=== PATIENT | female | born 2000 | race Two or more races ===

== ENCOUNTER 2020-06-03 | Outpatient (REF) | payer MEDICAID, SELFPAY | END 2020-06-03 00:01 | disposition home or self-care (01) | LOC: HO.LNP | PROVIDERS: Visit Provider Hospitalist | DX: Z13.89 Encounter for screening for other disorder (principal) | CPT/HCPCS: 87086 ==

== ENCOUNTER 2020-06-03 14:46 | Outpatient (REF) | payer MEDICAID, SELFPAY | END 2020-06-03 14:47 | disposition home or self-care (01) | LOC: HO.LAB 14:46 | PROVIDERS: Visit Provider Hospitalist | DX: N30.01 Acute cystitis with hematuria (principal) | CPT/HCPCS: 87086; 87088; 87147; 87186 ==

== ENCOUNTER 2020-12-06 09:42 | Outpatient (REF) | payer MEDICAID, SELFPAY ==
[2020-12-06 11:39] LABS: HBsAGNum1 0.24 S/CO (0.00-0.99); HIV AB/AG Nonreactive (Nonreactive); HIV Num 1 0.07 S/CO (0.00-0.99); Hepatitis B Surface Antigen Negative (Negative); ~HepC Num1 0.07 S/CO (0.00-0.79); ~Hepatitis C Antibody Nonreactive (Nonreactive)
[2020-12-06 11:51] LABS: Syphilis Screen Nonreactive (Nonreactive)
[2020-12-06 12:04] LABS: HBS Num1 5.79 mIU/mL (0-7.99); HBc Num1 0.15 S/CO (0.00-0.79); Hepatitis B Core Antibody Nonreactive (Nonreactive); ~Hepatitis B Surface Antibody NONREACTIVE (Nonreactive)
== END 2020-12-06 09:43 | disposition home or self-care (01) ==
LOC: HO.WFDLDS 09:42
PROVIDERS: Visit Provider Family Medicine
DX: Z01.84 Encounter for antibody response examination (principal); Z11.4 Encounter for screening for human immunodeficiency virus [HIV]
CPT/HCPCS: 36415; 86704; 86706; 86780; 86803; 87340; 87389

== ENCOUNTER 2020-12-08 13:31 | Outpatient (REF) | payer MEDICAID, SELFPAY ==
[2020-12-08 16:02] LABS: CT PCR NOT DETECTED (Not Detect.); NG PCR NOT DETECTED (Not Detect.)
== END 2020-12-08 13:32 | disposition home or self-care (01) ==
LOC: HO.LNP 13:31
PROVIDERS: Visit Provider Family Medicine
DX: Z11.3 Encounter for screening for infections with a predominantly sexual mode of transmission (principal)
CPT/HCPCS: 87491; 87591

== ENCOUNTER 2021-02-25 19:18 | Emergency (ER) | payer MEDICAID, SELFPAY ==
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
[2021-02-25 20:36] VITALS: BP 118/54; PULSE 77; RESP 16; TEMP 37.2; O2SAT 99; BMI 26.4
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
[2021-02-25] MEDS: Ibuprofen 600 MG TABLET PO (23:00)
== END 2021-02-26 00:18 | disposition home or self-care (01) ==
PROVIDERS: Emergency Provider Emergency Medicine; PCP Hospitalist
DX: S39.012A Strain of muscle, fascia and tendon of lower back, initial encounter (principal); S13.4XXA Sprain of ligaments of cervical spine, initial encounter; V47.5XXA Car driver injured in collision with fixed or stationary object in traffic accident, initial encounter; M25.532 Pain in left wrist; W22.11XA Striking against or struck by driver side automobile airbag, initial encounter; Y93.89 Activity, other specified; Y92.411 Interstate highway as the place of occurrence of the external cause; Y99.9 Unspecified external cause status
CPT/HCPCS: 70450; 72070; 72100; 72125; 73110; 73130; 73620; 99284

== ENCOUNTER 2021-03-01 10:26 | Outpatient (REF) | payer OTHER, MEDICAID, SELFPAY ==
--- NOTE | ~2021-03-01 | XR_ITS ---
EXAMINATION: LEFT HAND/WRIST. CLINICAL INFORMATION: Pain COMPARISON: None TECHNIQUE: 4 views. FINDINGS: There is no visible acute fracture, dislocation or subluxation seen. The soft tissues are normal. There is no scaphoid bone fracture. XR/XR hand wrist LT IMPRESSION: Unremarkable left hand/wrist exam.
== END 2021-03-01 10:27 | disposition home or self-care (01) ==
LOC: HO.XRAY 10:26
PROVIDERS: PCP Hospitalist; Visit Provider Family Medicine
DX: M25.532 Pain in left wrist (principal); M79.642 Pain in left hand
CPT/HCPCS: 73110; 73130

== ENCOUNTER 2021-12-22 15:30 | Outpatient (REF) | payer MEDICAID, SELFPAY | END 2021-12-22 15:31 | disposition home or self-care (01) | LOC: HO.LNP 15:30 | PROVIDERS: Visit Provider Hospitalist | DX: N39.0 Urinary tract infection, site not specified (principal); R35.0 Frequency of micturition | CPT/HCPCS: 87086; 87088; 87186 ==

== ENCOUNTER 2022-09-28 14:15 | Outpatient (REF) | payer MEDICAID, SELFPAY ==
[2022-09-29 12:51] LABS: Influenza A PCR NEGATIVE (Negative); Influenza B PCR NEGATIVE (Negative); Resp Syncy Virus RNA Qual PCR NEGATIVE (Negative); SARS COV2 PCR INHOUSE NEGATIVE (Negative)
== END 2022-09-28 14:16 | disposition home or self-care (01) ==
LOC: HO.LAB 14:15
PROVIDERS: Visit Provider Hospitalist
DX: Z20.822 Contact with and (suspected) exposure to COVID-19 (principal); B34.9 Viral infection, unspecified
CPT/HCPCS: 0241U

== ENCOUNTER 2023-05-15 13:46 | Outpatient (AMB) | payer MEDICAID, SELFPAY ==
[2023-05-15 13:53] VITALS: BP 116/64; PULSE 88; RESP 13; TEMP 36.3; O2SAT 99; BMI 24.6
--- NOTE | 2023-05-15 13:53 | MHC.PC.OV ---
Vital Signs 05/15/23 13:53 Height 5 ft 1 in Weight 130 lb 6 oz BMI 24.6 BP 116/64 Blood Pressure Location Rt brachial Position Sitting Respiration 13 Pulse 88 Pulse Source Pulse Oximeter Temp 97.3 F Temp Source Temporal Artery Scan Pulse Oximetry (%) 99 Oxygen Delivery Method Room Air Intake Visit Reasons: rash Intake Note: Patient states that the rash is on her stomach and on her breasts that doesn't itch. She states that sometimes there is an urge to itch but she doesn't itch. 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 Accompanied by: Self / Same As Patient Allergies No Known Allergies [No Known Allergies*] Allergy (Verified 05/15/23 14:11) Medication List - Last Reconciled 05/15/23 by Gladys Madrigal CNP cetirizine 10 mg PO DAILY PRN 30 days clindamycin phosphate 1% (Clindagel) 1 appl topical DAILY 28 days clotrimazole 1% (Lotrimin AF (clotrimazole)) 1 appl topical BID 4 weeks cyclobenzaprine 10 mg PO TID PRN ibuprofen 800 mg PO Q8H PRN 10 days olopatadine 0.2% (Pataday Once Daily Relief) 1 drp ophthalmic (eye) BEDTIME 1 month ondansetron HCl 4 mg PO Q6H PRN 1 month Tobacco use date assessed: 09/06/22 Dental Screening Dental Screen Date: 05/15/23 Did you have a dental visit in the last 12 months?: Yes Did you have a dental problem in the last 6 months where you did not have access to dental care?: No Was dental information given to patient?: Patient has dentist HPI HPI Comments History of Present Illness Details 23-year-old female present with complaints of a rash to anterior to her breasts and abdomen. She notes that the rash has been present for about a week. She notes that the rash is only itchy at times. She denies severe itching. She was evaluated at an urgent care 5 days ago and was prescribed hydrocortisone cream for contact dermatitis. She states that the rash medication is ineffective and the rash as been spreading. She denies using new body products or laundry detergent. She denies introducing new food in her diet. She denies excessive sweating. She denies sick contact. [facility] Medical History No pertinent past medical history Surgical History No pertinent past surgical history Family History Father No problems noted. Mother No problems noted. Social History Household Members: Family Housing: House Patient Tobacco Use Status: Never used Tobacco e-Cigarette/Vaping Use: Never Used service: No Current occupational status: employed Current occupation: [employer] Cognitive needs: No Hearing needs: No Vision needs: No Questionnaire Thrive Questionnaire Date Thrive assessed: 09/06/22 PHILIPPE-7 AMB Questionnaire PHILIPPE-7 Date PHILIPPE - 7 assessed: 09/06/22 Source: Developed by Drs. Hugo Kendrick, Kristin Zaldivar, Brendon Marie and colleagues, with an educational adam from [employer]. Review of Systems Const Details: Const Denies chills, Denies fatigue, Denies fever(s), Denies headache(s) and Denies weakness ENT Denies dizziness and Denies headache(s) Card Denies chest pain, Denies lightheadedness, Denies dyspnea and Denies other (Palpitations) Resp Denies cough, Denies dyspnea, Denies wheezing and Denies other ( shortness of breath) GI Denies abdominal pain, Denies melena, Denies hematochezia, Denies change in bowel habits, Denies dyspepsia and Denies nausea Denies hematuria and Denies dysuria Musc Denies abnormal gait, Denies myalgias, Denies arthralgias, Denies numbness and Denies tingling Skin/Breast Reports as per HPI Neuro Denies abnormal gait, Denies dizziness, Denies headache(s), Denies memory loss, Denies numbness, Denies Sensory deficit (Neuro), Denies tingling and Denies weakness Psych Denies anxiety, Denies depression, Denies memory loss Endo Denies cold intolerance, Denies fatigue, Denies heat intolerance, Denies polydipsia and Denies polyuria Aller/Immun Denies wheezing Physical exam (Primary Care) Vital Signs: Last Vital Signs Temp 97.3 F 05/15/23 13:53 Pulse 88 05/15/23 13:53 Resp 13 05/15/23 13:53 BP 116/64 05/15/23 13:53 Pulse Ox 99 05/15/23 13:53 Oxygen Delivery Method Room Air 05/15/23 13:53 BMI result Body Mass Index 24.6 Tobacco/Smoking Status: Tobacco use Status Tobacco use date assessed 09/06/22 05/15/23 14:03 Patient Tobacco Use Status Never used Tobacco 05/15/23 14:03 e-Cigarette/Vaping Use Never Used 05/15/23 14:10 Thrive Assessment: Date of Thrive Assessment Date Thrive assessed 09/06/22 05/15/23 14:03 Const Other: General: no acute distress and well developed Nutritional Appearance: well nourished Orientation/consciousness: patient oriented x3 HENMT Head: Yes normocephalic and Yes atraumatic Eyes General: appearance normal, both eyes and all related structures Pupils: Equal, round and reactive pupils present EOM: EOMs intact bilaterally Resp Effort & Inspection: normal respiratory effort Auscultation: clear to auscultation bilaterally Cardio Rate: regular rate Rhythm: regular rhythm Heart sounds: S1 normal heart sound present, S2 normal heart sound present, no gallops, no murmurs and no rubs GI Palpation (GI): No Abdominal aortic bruit present, Soft to palpation, nontender, No hepatosplenomegaly present and No Rebound tenderness present Auscultation: normal bowel sounds General: Yes no CVA tenderness Back/Spine/Pelvis Back: no CVA tenderness Cervical Spine: cervical ROM normal and No Cervical spine tenderness Thoracic/Lumbar Spine: thoraco-lumbar ROM normal, No pain with thoraco-lumbar ROM, No thoracic spinal tenderness and No lumbar spinal tenderness Extrem General: Yes normal to inspection, No edema and No calf tenderness Skin General: warm and dry. Normal skin color. Normal skin turgor Lesions: no lesions Rashes: Significant amount of red, slightly raised hives-like rash to her entire anterior torso and to a lesser amount to her mid and upper back. No drainage or overt signs of infection Trauma: no lacerations or abrasions Wounds: no wounds Nails: normal Neuro General: patient oriented x3, gait normal and no focal neuro deficit Cranial nerves: Yes Equal, round and reactive pupils present Cognition (Neuro): normal cognition Gait exam (Neuro): Normal gait present Sensory Exam: No Sensory deficit (Neuro) Psych Appearance: grossly normal Affect: normal affect Attitude: cooperative Thought process: Normal thought process present Assessment and Plan Assessment & Plan (1) Rash of body: Code(s): R21 - Rash and other nonspecific skin eruption Plan: Significant amount of red, slightly raised hives-like rash to her entire anterior torso and to a lesser amount to her mid and upper back. No drainage or overt signs of infection. Likely allergy although possible viral rash. Clotrimazole-betamethasone cream ordered. Use as prescribed Zyrtec ordered. Take as prescribed. May use hibiclens during showers; instructed use. Referred to dermatology. May cancel appointment if the rash completely resolves Return with worsening or new signs and symptoms Verbalized understanding and agreed with treatment plan. Orders: Referrals Dermatology Referral R21 - Rash and other nonspecific skin eruption Medications: New clotrimazole-betamethasone 1-0.05 % 1 appl topical BID 45 grams 0RF 2 weeks Changed From cetirizine 10 mg PO DAILY PRN 30 tabs 0RF allergy symptoms 30 days To cetirizine 10 mg PO DAILY 30 tabs 0RF allergy symptoms 30 days Discontinued cyclobenzaprine Discontinued Reason: Doctor's Order 10 mg PO TID PRN 20 tabs 0RF muscle spasm ibuprofen Discontinued Reason: Doctor's Order 800 mg PO Q8H 10 days PRN 30 tabs 0RF pain clotrimazole 1% (Lotrimin AF (clotrimazole)) Discontinued Reason: Doctor's Order 1 appl topical BID 4 weeks 90 grams 1RF R21 - Rash and other nonspecific skin eruption ondansetron HCl Discontinued Reason: Doctor's Order 4 mg PO Q6H 1 month PRN 30 tabs 0RF nausea and vomiting Coding Level of Care Code Est Pt Level 3 (35312) Diagnoses Rash of body R21
== END 2023-05-15 14:29 | disposition home or self-care (01) ==
PROVIDERS: PCP Hospitalist; Visit Provider Nurse Practitioner Family
DX: R21 Rash and other nonspecific skin eruption (principal)
CPT/HCPCS: 99212; 99213

== ENCOUNTER 2023-07-22 09:26 | Emergency (ER) | payer MEDICAID, SELFPAY ==
[2023-07-22 09:47] VITALS: BP 111/57; PULSE 63; RESP 16; TEMP 36.4; O2SAT 100; BMI 25.2
--- NOTE | 2023-07-22 12:43 | ED.BACK ---
HPI - Back Pain/Injury General Chief Complaint: Back Pain/Injury Stated Complaint: Back pain Time Seen by Provider: 07/22/23 12:22 Source: patient Mode of arrival: ambulatory Limitations: no limitations History of Present Illness HPI Narrative: 23-year-old female presents with complaints of right lower back pain, status post heavy lifting yesterday at work, was lifting a box, bent over, immediately started experiencing right lower back pain, without radiation. Patient denies fevers, chills, numbness, tingling, urinary/bowel incontinence/retention a chest pain, shortness of breath. Related Data Previous Rx's Medication Instructions Recorded olopatadine 0.2 % eye drops 1 drp ophthalmic (eye) BEDTIME 1 10/05/20 (Pataday Once Daily Relief) month #2.5 mL clindamycin phosphate 1 % topical 1 appl topical DAILY 28 days #75 mL 09/06/22 gel, once daily (Clindagel) cetirizine 10 mg tablet 10 mg PO DAILY allergy symptoms 30 06/13/23 days #30 tabs clotrimazole-betamethasone 1 1 appl topical BID 2 weeks #45 06/13/23 %-0.05 % topical cream grams cyclobenzaprine 10 mg tablet 10 mg PO BEDTIME PRN muscle spasm 07/22/23 #7 tabs ketorolac 10 mg tablet 10 mg PO TID PRN pain 5 days #15 07/22/23 tabs lidocaine 5 % topical patch 1 patch topical DAILY PRN pain #15 07/22/23 ea Allergies Allergy/AdvReac Type Severity Reaction Status Date / Time No Known Allergies Allergy Verified 07/22/23 09:47 [No Known Allergies*] Review of Systems Review of Systems: Constitutional : No Weight loss, No Fever, No Chills, ENT/Mouth : No Hearing loss, No Ear Pain, No Nasal Congestion, No Sinus Pain, No Hoarseness, No sore throat, No Rhinorrhea, No Swallowing Difficulty Cardiovascular : No Chest Pain, No SOB Respiratory : No Cough, No Dyspnea Gastrointestinal : No Nausea, No Vomiting, No Diarrhea, No abdominal Pain, No Hematochezia, No Melena Genitourinary : No Dysuria, No Urinary Frequency, No Hematuria, No Urinary Incontinence, Musculoskeletal : positive back pain Skin : No Skin Lesions, No rash Neuro : No Weakness, No Numbness, No Paresthesias, no loss of bowel or bladder incontinence, no saddle anesthesia Yes all other systems are reviewed and are negative [facility] Past Medical History Attestation statement: The following information was validated with the patient. Source: old records reviewed and nursing notes reviewed Medical History No pertinent past medical history Surgical History No pertinent past surgical history Family History Family History Father No problems noted. Mother No problems noted. Social History Social History Household Members: Family Housing: House Patient Tobacco Use Status: Never used Tobacco e-Cigarette/Vaping Use: Never Used Advance Directives: No service: No Current occupational status: employed Current occupation: [employer] Cognitive needs: No Hearing needs: No Vision needs: No Physical Exam Vital Signs: Vital Signs: Last Vital Signs Temp 97.6 F 07/22/23 09:47 Pulse 63 07/22/23 09:47 Resp 16 07/22/23 09:47 BP 111/57 L 07/22/23 09:47 Pulse Ox 100 07/22/23 09:47 O2 Del Method Room Air 07/22/23 09:47 BMI result Body Mass Index 25.2 vss Appearance: Alert.? Oriented X3.? No acute distress.? Head: Normocephalic, atraumatic, no step-offs or deformities Eyes: Pupils equal, round and reactive to light.? ENT: Pharynx normal.? Neck: Normal inspection.? Neck supple.? CVS: Normal heart rate and rhythm.? Pulses normal.? Respiratory: No respiratory distress.? Breath sounds normal.? Abdomen: Soft and nontender.? Skin: Skin warm and dry.? Normal skin color.? Normal skin turgor.? Extremities: No lower extremity edema.? No calf ttp. 5/5 strength to bilateral upper and lower extremities Back: No midline tenderness, no C-spine tenderness, full range of motion, no CVA tenderness bilaterally + right lumbar lower paraspinous muscle spasms on palpation/tenderness Neuro: Oriented X 3.? No motor deficit.? No sensory deficit. CN 2-12 intact . Ambulating with steady gait normal coordination. No saddle paresthesia Course Reevaluation(s) Reevaluation #1: Patient feeling better however her pain is not completely gone. Will give Toradol and Tylenol. Patient to be discharged home with mom will give her follow-up with [facility]. I did patient should follow up with the [facility] as this is work related. Educated patient on diagnosis and treatment plan, answered all question, patient verbalizes understanding. At this time patient will be discharged home, advised to return with new or worsening symptoms. Educated on worrisome signs and symptoms and when to return. At this time I feel comfortable discharge home. Patient is moving around much better than initial evaluation. Able to ambulate without difficulty Time: 13:37 Medications Administered Discontinued Medications Generic Name Dose Route Start Last Admin Trade Name Freq PRN Reason Stop Dose Admin Ketorolac Tromethamine 30 mg 07/22/23 12:50 07/22/23 13:06 Ketorolac Tromethamine 30 Mg/Ml Vial IM 07/22/23 12:51 30 mg ONCE ONE Administration Lidocaine 1 patch 07/22/23 12:50 07/22/23 13:06 Lidocaine 4 % Patch Adh..Patch TRANSDERMA 07/22/23 12:51 1 patch ONCE ONE Administration Protocol Medical Decision Making Medical Decision Making [facility] Narrative: 1248 23-year-old female presents with right lower back pain status post heavy lifting at work Physical exam right lumbar lower paraspinous muscle spasms on palpation/tenderness Likely lumbar spasm/ strain vs herniated disc vs lumbago. Unlikely cord compression, epidural abscess, epidural abscess Plan at this time Toradol, Lidoderm patch Differential Diagnosis Differential Diagnoses: The differential diagnosis associated with the presentation includes Likely lumbar spasm/ strain vs herniated disc vs lumbago. Unlikely cord compression, epidural abscess, epidural abscess Admission/Observation Consideration of admission/observation: Escalation of care including admission/observation considered Tests considered The following testing was considered but not selected: No red flag symptoms no indication for imaging at this time. No need for x-ray, atraumatic, no need for MRI no red flag symptoms. Prescription Management I considered prescription management with: Pain Medication and Other Critical Care Time Critical Care Time Critical Care Time: No Discharge Plan Discharge Clinical Impression: Lumbar back pain Patient Disposition: Home, Self-Care Instructions: Acute Low Back Pain (ED), Back Pain (ED) Additional Instructions: Take your medications as prescribed. If you were prescribed antibiotics today, it is important that you take your medication to their entirety, do not skip any doses, do not finish them early. Follow-up with your primary care provider this week. Return to the emergency department with new or worsening symptoms. Such as fevers, chills, chest pain, shortness of breath, nausea, vomiting, dizziness, headache, vision changes, lethargy In case of emergency call 911 Toradol has been sent to your pharmacy, you tolerated this well in the department. Please take this as prescribed do not take this with ibuprofen, or other NSAIDs, do not mix this with alcohol. Side effects of this medication including increased risk for bleeding and possible kidney injury. Follow-up with [facility] Prescriptions: New cyclobenzaprine 10 mg tablet 10 mg PO BEDTIME PRN (Reason: muscle spasm) Qty: 7 0RF ketorolac 10 mg tablet 10 mg PO TID PRN (Reason: pain) 5 Days Qty: 15 0RF lidocaine 5 % adhesive patch,medicated 1 patch topical DAILY PRN (Reason: pain) Qty: 15 0RF Rx Instructions: leave on most painful area for up to 12 hrs No Action cetirizine 10 mg tablet 10 mg PO DAILY 30 Days Qty: 30 0RF clotrimazole-betamethasone 1-0.05 % cream 1 appl topical BID 14 Days Qty: 45 0RF olopatadine [Pataday Once Daily Relief] 0.2 % drops 1 drp ophthalmic (eye) BEDTIME 30 Days Qty: 2.5 3RF clindamycin phosphate [Clindagel] 1 % gel, once daily 1 appl topical DAILY 28 Days Qty: 75 0RF Referrals: [facility] [Provider Group] - 1 day Physician,Unknown J [Primary Care Provider] - 2 days Stand Alone Forms: Work/School Release
[2023-07-22] MEDS: Lidocaine 4 % Patch ADH..PATCH 1 PATCH TRANSDERMA (13:06)
[2023-07-22] MEDS: Ketorolac Tromethamine 30 MG/ML VIAL IM (13:06)
[2023-07-22] MEDS: Acetaminophen 325 MG TABLET 650 MG PO (13:43)
[2023-07-22] MEDS: Morphine Sulfate Immed Release 15 MG TABLET PO (13:43)
[2023-07-22 13:47] VITALS: PULSE 88; RESP 14; O2SAT 98
== END 2023-07-22 13:48 | disposition home or self-care (01) ==
PROVIDERS: Emergency Provider Emergency Medicine
DX: M54.50 Low back pain, unspecified (principal); M54.9 Dorsalgia, unspecified
CPT/HCPCS: 96372; 99284; J1885

== ENCOUNTER 2023-12-04 14:46 | Outpatient (REF) | payer MEDICAID, SELFPAY ==
[2023-12-05 15:05] LABS: BV Int Neg Control Negative (Negative); BV Int Pos Control Positive (Positive)
[2023-12-05 15:36] LABS: CT PCR NOT DETECTED (Not Detect.); NG PCR NOT DETECTED (Not Detect.)
== END 2023-12-04 14:47 | disposition home or self-care (01) ==
LOC: HO.LAB 14:46
PROVIDERS: Visit Provider Advanced Practice Midwife
DX: Z01.419 Encounter for gynecological examination (general) (routine) without abnormal findings (principal); Z20.2 Contact with and (suspected) exposure to infections with a predominantly sexual mode of transmission; N89.8 Other specified noninflammatory disorders of vagina
CPT/HCPCS: 0353U; 87255; 87480; 87510; 87660; 88142; 99395

== ENCOUNTER 2023-12-04 15:49 | Outpatient (REF) | payer MEDICAID, SELFPAY | END 2023-12-04 15:50 | disposition home or self-care (01) | LOC: HO.LNP 15:49 | PROVIDERS: Visit Provider Advanced Practice Midwife | DX: Z13.89 Encounter for screening for other disorder (principal) ==

== ENCOUNTER 2023-12-05 09:29 | Outpatient (REF) | payer MEDICAID, SELFPAY | END 2023-12-05 09:30 | disposition home or self-care (01) | LOC: HO.LNP 09:29 | PROVIDERS: Visit Provider Advanced Practice Midwife | DX: N89.8 Other specified noninflammatory disorders of vagina (principal) | CPT/HCPCS: 36415; 86695; 86696; 86780; 86803; 87255; 87340; 87389; 99212 ==

== ENCOUNTER 2023-12-05 09:33 | Outpatient (AMB) | payer MEDICAID, SELFPAY ==
[2023-12-05 09:33] VITALS: BP 116/70; BMI 25.3
--- NOTE | 2023-12-05 09:33 | MHC.OFFVIS ---
Vital Signs 12/05/23 09:33 Height 5 ft 1 in Weight 134 lb BMI 25.3 BP 116/70 Intake Visit Reasons: repeat test Police Specialist Required: No Information Interpreted: non-clinical & clinical Director Of Women'S Services: Director Of Women'S Services Present (Gucciyn) Allergies No Known Allergies [No Known Allergies*] Allergy (Verified 12/05/23 09:34) Medication List - Last Reconciled 12/05/23 by Emily Fox CNM valacyclovir 1,000 mg PO BID Post menopausal: No Patient : No HPI HPI repeat test: Details: Patient is here today for repeat HSV culture on vaginal lesions that were evident for the patient since Sunday and which were tested yesterday. There was a concern that that culture might be rejected by the lab as the date on the outside of the package says 11/02/2023. The patient states that she actually woke up today and the sore area in question feels better and it did not burn her at all when the Pee went over it. She is re counting again how before this happened she thinks she wiped herself very hard with toilet paper and wonders if she cut herself. that does remain a possibility [facility] Medical History No pertinent past medical history Surgical History No pertinent past surgical history Family History Father No problems noted. Mother No problems noted. Social History Household Members: Family Housing: House Patient Tobacco Use Status: Never used Tobacco e-Cigarette/Vaping Use: Never Used service: No Current occupational status: employed Current occupation: [employer] Cognitive needs: No Hearing needs: No Vision needs: No Female Reproductive History Menstrual Age of Menarche: 12 control method: none Physical Exam Vital Signs: Last Vital Signs BP 116/70 12/05/23 09:33 BMI result Body Mass Index 25.3 Other: Please see the exam from yesterday. Today vaginal lesion on left side of introitus is almost epithelialized and less reddened at the border and the pink area on the right side is less noticeable as well and neither are as painful to the patient with touching with a Q-tips. Assessment & Plan Assessment & Plan (1) Vaginal lesion: Code(s): N89.8 - Other specified noninflammatory disorders of vagina Category: Medical (2) Encounter for screening examination for sexually transmitted disease: Code(s): Z11.3 - Encounter for screening for infections with a predominantly sexual mode of transmission Category: Medical Plan Patient is here today for repeat HSV culture on vaginal lesions that were evident for the patient since Sunday and which were tested yesterday. There was a concern that that culture might be rejected by the lab as the date on the outside of the package says 11/02/2023. The patient states that she actually woke up today and the sore area in question feels better and it did not burn her at all when the Pee went over it. She is re counting again how before this happened she thinks she wiped herself very hard with toilet paper and wonders if she cut herself. that does remain a possibility On exam today the patient has 2 faint areas that are pink and the primary site on the left side that appeared open and ulcerated appears to be epithelializing at this time. Culture tests were repeated again as in yesterday using a different swab for each side but neither elicit the same painful response as it did yesterday either. Discussed the wide range of possibilities we will still await testing for today and yesterday she is going to go to the lab now and get all of the blood work that I ordered yesterday I am going to leave it up to her as to whether not she wants to start the Valtrex or not. I asked her to call in in 1 week if she has not heard to get the results just in case results get filed as negative. I also gave her information to sign up for the portal. Additionally she is going to think some more about control options I did remind her that withdrawal does not work very well. We also had an extensive discussion about all the other contributing factors with yeast and a changes to her vulva and all the different factors that contribute to it. Coding Level of Care Code Est Pt Level 3 (72285) Diagnoses Vaginal lesion N89.8 Encounter for screening examination for sexually transmitted disease Z11.3
== END 2023-12-05 10:28 | disposition home or self-care (01) ==
PROVIDERS: Visit Provider Advanced Practice Midwife
DX: N89.8 Other specified noninflammatory disorders of vagina (principal); Z11.3 Encounter for screening for infections with a predominantly sexual mode of transmission
CPT/HCPCS: 99213

== ENCOUNTER 2023-12-05 10:30 | Outpatient (REF) | payer MEDICAID, SELFPAY ==
[2023-12-06 08:37] LABS: HBsAGNum1 0.28 S/CO (0.00-0.99); HIV AB/AG Nonreactive (Nonreactive); HIV Num 1 0.05 S/CO (0.00-0.99); Hepatitis B Surface Antigen Negative (Negative); ~HepC Num1 0.08 S/CO (0.00-0.79); ~Hepatitis C Antibody Nonreactive (Nonreactive)
[2023-12-06 08:38] LABS: Syphilis Screen Nonreactive (Nonreactive)
[2023-12-07 08:48] LABS: Herpes Simplex Type 1 IgG 0.96 index; Herpes Simplex Type 2 IgG <0.90 index
== END 2023-12-05 10:31 | disposition home or self-care (01) ==
LOC: HO.HHCL 10:30
PROVIDERS: Visit Provider Advanced Practice Midwife
DX: Z11.3 Encounter for screening for infections with a predominantly sexual mode of transmission (principal); Z11.4 Encounter for screening for human immunodeficiency virus [HIV]; N89.8 Other specified noninflammatory disorders of vagina
CPT/HCPCS: 36415; 86695; 86696; 86780; 86803; 87255; 87340; 87389

== ENCOUNTER 2023-12-10 10:28 | Outpatient (AMB) | payer MEDICAID, SELFPAY ==
--- NOTE | 2023-12-10 10:29 | A.OFFVIS_ITS ---
Intake Visit Reasons: TV follow lab Emergency Room Nurse Required: No Allergies No Known Allergies [No Known Allergies*] Allergy (Verified 12/10/23 10:30) Post menopausal: No HPI HPI TV follow lab: Details: This is a patient is test results done last relation to a vaginal lesion testing directly from lesion on the 1st day of that she was seen and repeat testing was done 2nd day with a newer testing tube. She went for blood work on the 2nd complete and full discussion about HSV and the possibilities has taken place on both. The patient was improving symptomatically on the 2nd day she has opted not to take the valacyclovir she is feeling much better now I reviewed the positive HSV type 1 antibodies that showed up in her blood work and the fact that the culture results are still pending as expected. I reviewed again that the antibody is not specific and can not tell when she might have had any exposure at all or whether not it is related to the lesion in question. I had given her much information about the possible transmission orally to genitaly and vice versa, and safer sex suppression and treatment. She has no symptoms now she seems saddened by this report and says she has not in denial but she was very much hoping there would be no positive results anywhere. She has been informed about the positive Gardnerella and says she has no symptoms of that she has opted not to take medicine for that I did discuss with her what symptoms of bacterial vaginosis would be, and she does not have any of them. I have given her much written information from up-to-date beyond the basics about HSV. She is going to call in to check on the HSV culture results by the end of the week if they are positive or if she has any other questions we will have another tele visit to discuss them. If she feels she does not need to discuss the results and they are negative then we do not have to have another visit. She is still concerned about this. ON LICENSE OF [facility] Medical History No pertinent past medical history Surgical History No pertinent past surgical history Family History Father No problems noted. Mother No problems noted. Social History Household Members: Family Housing: House Patient Tobacco Use Status: Never used Tobacco e-Cigarette/Vaping Use: Never Used service: No Current occupational status: employed Current occupation: [employer] Cognitive needs: No Hearing needs: No Vision needs: No Female Reproductive History Menstrual Age of Menarche: 12 control method: none Telehealth Telehealth Telehealth Platform: [employer] Location of provider rendering services: practice address Location of patient: other (work) Patient Identification confirmed using: Name, : Yes Telehealth method: video Patient verbally consented to treatment: Yes Patient verbally consented to billing insurance company: Yes Patient informed of any privacy concerns related to visit: Yes Minutes spent on Phone/Video with Pt.: 13 (4 cr/ 13 speaking w pt/ 9 charting=26) Results Reviewed Results Reviewed: Name: Bhavya Syed V Age/Sex: 23/F : 2000 Unit#: [id number] Attend Dr: Emily Fox CNM Re12/05/23 Status: DEP REF Location: [facility] Disch: SPEC : [id number] JAIR: 12/05/23-UNK STATUS: RECD REQ : [id number] RECD: 12/05/23-[address]: Emily Fox COMP: - ENTERED: 12/05/23-[address]: ORDERED: Herpes Vir Cult Test Result Flag Reference Herpes Vir Cult PENDING Name: Bhavya Syed V Age/Sex: 23/F : 2000 Unit#: [id number] Attend Dr: Emily Fox Re12/05/23 Status: DEP REF Location: [facility] Disch: SPEC : [id number] JAIR: 12/05/23 STATUS: COMP REQ : [id number] RECD: 12/05/[address] [facility] [address]: RuddyEmily Paul COMP: 12/07/23 ENTERED: 12/05/[address] [facility] [address]: ORDERED: Herpes Simp IgG Test Result Flag Reference HSV Type 1 IgG 0.96 H index HSV Type 2 IgG <0.90 index Index Interpretation ----- <0.90 Negative 0.90-1.09 Equivocal >1.09 Positive This assay utilizes recombinant type-specific antigens to differentiate HSV-1 from HSV-2 infections. A positive result cannot distinguish between recent and past infection. If recent HSV infection is suspected but the results are negative or equivocal, the assay should be repeated in 4-6 weeks. The performance characteristics of the assay have not been established for pediatric populations, immunocompromised patients, or screening. For additional information, please refer to http://education.[employer] [place]/faq/RNJ426 (This link is being provided for informational/ educational purposes only.) THIS TEST WAS PERFORMED AT: [employer] [address] [place] [id number] DANAY WEBB MD END Assessment & Plan Assessment & Plan (1) Vaginal lesion: Comment: It is the testing from lesions still pending. Blood tests showed positive HSV antibodies. Complete teaching re it is not possible to say if these are connected. Code(s): N89.8 - Other specified noninflammatory disorders of vagina Category: Medical (2) Encounter for screening examination for sexually transmitted disease: Code(s): Z11.3 - Encounter for screening for infections with a predominantly sexual mode of transmission Category: Medical Plan This is a patient is test results done last relation to a vaginal lesion testing directly from lesion on the 1st day of that she was seen and repeat testing was done 2nd day with a newer testing tube. She went for blood work on the 2nd complete and full discussion about HSV and the possibilities has taken place on both. The patient was improving symptomatically on the 2nd day she has opted not to take the valacyclovir she is feeling much better now I reviewed the positive HSV type 1 antibodies that showed up in her blood work and the fact that the culture results are still pending as expected. I reviewed again that the antibody is not specific and can not tell when she might have had any exposure at all or whether not it is related to the lesion in question. I had given her much information about the possible transmission orally to genitaly and vice versa, and safer sex suppression and treatment. She has no symptoms now she seems saddened by this report and says she has not in denial but she was very much hoping there would be no positive results anywhere. She has been informed about the positive Gardnerella and says she has no symptoms of that she has opted not to take medicine for that I did discuss with her what symptoms of bacterial vaginosis would be, and she does not have any of them. I have given her much written information from up-to-date beyond the basics about HSV. She is going to call in to check on the HSV culture results by the end of the we ek if they are positive or if she has any other questions we will have another tele visit to discuss them. If she feels she does not need to discuss the results and they are negative then we do not have to have another visit. She is still concerned about this. Coding Level of Care Code Tele New Pt Level 3 (99535) Diagnoses Vaginal lesion N89.8 Encounter for screening examination for sexually transmitted disease Z11.3 Time Spent (min) 26
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
== END 2023-12-10 11:14 | disposition home or self-care (01) ==
LOC: HO.HWSM 10:28
PROVIDERS: Visit Provider Advanced Practice Midwife
DX: N89.8 Other specified noninflammatory disorders of vagina (principal); Z11.3 Encounter for screening for infections with a predominantly sexual mode of transmission
CPT/HCPCS: 99213

== ENCOUNTER → 2023-12-10 10:28 | Outpatient (BNVA) | payer MEDICAID, SELFPAY | PROVIDERS: Visit Provider Advanced Practice Midwife ==

== ENCOUNTER 2024-01-24 11:40 | Outpatient (AMB) | payer MEDICAID, SELFPAY ==
[2024-01-24 11:44] VITALS: BP 130/70; PULSE 93; TEMP 36.6; O2SAT 98; BMI 25.3
--- NOTE | 2024-01-24 11:44 | AM.OFFWIN_ITS ---
Intake Vital Signs 01/24/24 11:44 Height 5 ft 1 in Weight 134 lb BMI 25.3 BP 130/70 Blood Pressure Location Lt brachial Position Sitting Pulse 93 Pulse Source Pulse Oximeter Temp 97.8 F Temp Source Temporal Artery Scan Pulse Oximetry (%) 98 Oxygen Delivery Method Room Air Intake Visit Reasons: EP Vaginal Itching/no discharge Intake Note: pt is here today for vaginal itching started yesterday Patient Tobacco Use Status: Never used Tobacco Allergies No Known Allergies [No Known Allergies*] Allergy (Verified 01/24/24 11:47) Do you need a note to return to daycare/school/sports/work: No HPI HPI Comments History of Present Illness Details 24 y/o female patient who presents to [facility] in clinic with c/o Vaginal itching for few days. She was recently treated with Metronidazole x 7 days for BV infection. Reports that the Vaginal odor has Subsided. Sexually active with one male partner - no condoms. Desires . No concerns for STIs. Pt denies Urinary symptoms today. [facility] Medical History No pertinent past medical history Surgical History No pertinent past surgical history Family History Father No problems noted. Mother No problems noted. Social History Household Members: Family Housing: House Patient Tobacco Use Status: Never used Tobacco e-Cigarette/Vaping Use: Never Used service: No Current occupational status: employed Current occupation: [employer] Cognitive needs: No Hearing needs: No Vision needs: No Female Reproductive History Menstrual Age of Menarche: 12 Review of Systems Const All systems reviewed & are unremarkable except as noted in HPI and below Physical Exam Vital Signs: Last Vital Signs Temp 97.8 F 01/24/24 11:44 Pulse 93 01/24/24 11:44 BP 130/70 01/24/24 11:44 Pulse Ox 98 01/24/24 11:44 Oxygen Delivery Method Room Air 01/24/24 11:44 BMI result Body Mass Index 25.3 Const General: comfortable Orientation/consciousness: patient oriented x3 Other: Patient declined Vaginal/Pelvic Exam today. Neuro General: patient oriented x3, gait normal and moves all extremities Psych Speech and movement: Normal speech and movement present Results AMB Urinalysis, Automated UA Leukoctes 15 Purnima/uL Last Edit by Jason Mejía CMA on 01/24/24 12:03 UA Nitrite Negative Last Edit by Jason Mejía CMA on 01/24/24 12:03 UA Urobilinogen 0.2 mg/dL Last Edit by Jason Mejía CMA on 01/24/24 12 :03 UA Protein 0 mg/dL Last Edit by Jason Mejía CMA on 01/24/24 12:03 UA pH 6.0 Last Edit by Jason Mejía CMA on 01/24/24 12:03 UA Blood 0 Prateek/uL Last Edit by Jason Mejía CMA on 01/24/24 12:03 UA Specific [place] 1.025 Last Edit by Jason Mejía CMA on 01/24/24 12:03 UA Ketone Negative Last Edit by Jason Mejía CMA on 01/24/24 12:03 UA Bilirubin 0 mg/dL Last Edit by Jason Mejía CMA on 01/24/24 12:03 UA Glucose 0 mg/dL Last Edit by Jason Mejía CMA on 01/24/24 12:03 Assessment & Plan Assessment & Plan (1) Vulvovaginal candidiasis: Code(s): B37.31 - Acute candidiasis of vulva and vagina Plan: - Educated on prevention methods for BV and Era - Educated on safer sex - Advised to avoid Douching and using corrosive soaps on vagina. - Advised to always void pre and post intercourse. U/A positive for leuco, but this is could be cross contamination with vaginal bacteria. Will hold Tx Poss Cystitis today, and treat Era Pt know to RTC if symptoms worse. Orders: Orders AMB Urinalysis Automated Today Z13.9 - Encounter for screening, unspecified Medications: New fluconazole TAKE 1 TABLET NOW, MAY TAKE SECOND DOSE IN 72 HOURS. 150 mg PO DAILY 5 tabs 1RF B37.31 - Acute candidiasis of vulva and vagina Coding Level of Care Code Est Pt Level 3 (46173) Diagnoses Vulvovaginal candidiasis B37.31 Time Spent (min) 15
== END 2024-01-24 12:40 | disposition home or self-care (01) ==
PROVIDERS: Visit Provider Nurse Practitioner Family
DX: B37.31 Acute candidiasis of vulva and vagina (principal)
CPT/HCPCS: 81003; 99213

== ENCOUNTER 2024-06-19 15:01 | Outpatient (AMB) | payer MEDICAID, SELFPAY ==
--- NOTE | 2024-06-19 15:12 | MHC.PC.OV ---
Vital Signs 06/19/24 15:32 Height 5 ft 1 in Weight 137 lb 4 oz BMI 25.9 BP 98/56 L Blood Pressure Location Rt brachial Position Sitting Respiration 16 Pulse 88 Pulse Source Pulse Oximeter Temp 98.2 F Temp Source Oral Pulse Oximetry (%) 100 Oxygen Delivery Method Room Air Intake Visit Reasons: octaviano from [facility]/obgyn referral Intake Note: patient here for [facility] and she would like an OGYN referral. 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 Is last menstrual period known: No Post menopausal: No Patient : Yes (8 weeks and 5 days ) Allergies No Known Allergies [No Known Allergies*] Allergy (Verified 06/19/24 15:32) Medication List - Last Reconciled 06/19/24 by Gladys Madrigal CNP folic acid 0.8 mg PO DAILY vit-iron fum-folic ac 27 mg iron- 0.8 mg tabs PO DAILY Tobacco use date assessed: 06/19/24 Dental Screening Dental Screen Date: 06/19/24 Did you have a dental visit in the last 12 months?: Yes Did you have a dental problem in the last 6 months where you did not have access to dental care?: No Was dental information given to patient?: Patient has dentist HPI HPI Comments History of Present Illness Details New patient Prior PCP:? [facility], Annia Gunderson DNP Last office visit/CPE: 2021 Acute issue(s): None She is currently on vitamins and folic acid She admits to making healthy dietary choices and walks routinely. She generally sleeps well She notes that she is 8 weeks without complications. She has not had care. She requests a referral to [facility] industrial education teacher PMHx: None SurgHx: None FHx: None SocHx: Nonsmoker. Does not drink alcohol. No recreation drugs Last eye exam was several years Last Pap smear test was in 12/2022: negative Last Tdap was on 09/22/2019 She has not been vaccinated for the flu vaccine this season and declines the vaccine She notes that she is sexually active, in a monogamous relationship, and has no concern for STD PFSH Medical History No pertinent past medical history Surgical History No pertinent past surgical history Family History (Updated 06/19/24 @ 15:30 by Faye Hannon) Father No problems noted. Mother No problems noted. Social History Household Members: Family Housing: House Patient Tobacco Use Status: Never used Tobacco e-Cigarette/Vaping Use: Never Used Second Hand Smoke Exposure: No service: No Current occupational status: employed Current occupation: [employer] Cognitive needs: No Hearing needs: No Vision needs: No Female Reproductive History Menstrual Age of Menarche: 12 Questionnaire PHQ-9 Over the last 2 weeks, how often have you been bothered by any of the following problems? 1. Little interest or pleasure in doing things: not at all 2. Feeling down, depressed, or hopeless: not at all 3. Trouble falling or staying asleep, or sleeping too much: not at all 4. Feeling tired or having little energy: nearly every day (do to ) 5. Poor appetite or overeating: not at all 6. Feeling bad about yourself - or that you are a failure or have let yourself or your family down: not at all 7. Trouble concentrating on things, such as reading the newspaper or watching television: not at all 8. Moving or speaking so slowly that other people could have noticed. Or the opposite - being so fidgety or restless that you have been moving around a lot more than usual: not at all 9. Thoughts that you would be better off or of hurting yourself in some way: not at all Total score: 3 Depression Screening Interpretation: Negative Depression Screening Done: Yes 99067 - PHQ-9 Billing: Yes Source: Developed by Drs. Hugo Kendrick, Kristin Zaldivar, Brendon Marie and colleagues, with an educational adam from [employer]. Thrive Questionnaire Date Thrive assessed: 06/19/24 I am a: Patient What is your living situation today?: I have a steady place to live Within the past 12 months, did the food you bought not last and you didn't have the money to get more?: Never true Within the past 12 months, did you worry whether your food would run out before you got money to buy more?: Never true Do you have trouble paying for medicines?: No Do you have trouble getting transportation to medical appointments?: No Do you have trouble paying your heating and electricity bill?: No Do you have trouble taking care of your child, family member or friend?: No Do you have trouble with day-to-day activities such as bathing, preparing meals, shopping, managing finances, etc.?: No Are you currently unemployed and looking for a job?: No Are you interested in more education?: No Please select the resources that you would like help with: None Currently or been in a relationship where the following occur: No concerns reported THRIVE Score: 0 AUDIT C Alcohol Use Questionnaire (AUDIT-C) 1. How often do you have a drink containing alcohol?: Never Total Score: 0 PHILIPPE-7 AMB Questionnaire PHILIPPE-7 Date PHILIPPE - 7 assessed: 06/19/24 Feeling nervous, anxious, or on edge: 0 = Not at all Not being able to stop or control worryin = Not at all Worrying too much about different things: 0 = Not at all Trouble relaxin = Not at all Being so restless that it is hard to sit still: 0 = Not at all Becoming easily annoyed or irritable: 0 = Not at all Feeling afraid as if something awful might happen: 0 = Not at all Total PHILIPPE-7 score (0-4 normal; 5-9 mild; 10-14 moderate; 15-21 severe): 0 Source: Developed by Drs. Hugo Kendrick, Kristin Zaldivar, Brendon Marie and colleagues, with an educational adam from [employer]. PHILIPPE-7 Assessment Billing PHILIPPE-7 Assessment Tool: PHILIPPE-7 Assessment 51069 Review of Systems Const Details: Denies chills, Denies fatigue, Denies fever(s), Denies headache(s) and Denies weakness HEENT Denies change in vision, Denies dizziness, Denies headache(s), Denies hearing loss, Denies nasal congestion, Denies sinus pain, Denies sinus pressure and Denies sore throat Card Denies chest pain, Denies lightheadedness, Denies dyspnea and Denies other (palpitations) Resp Denies cough, Denies dyspnea and Denies wheezing GI Denies abdominal pain, Denies melena, Denies hematochezia, Denies change in bowel habits, Denies dyspepsia and Denies nausea Denies hematuria and Denies dysuria Musc Denies abnormal gait, Denies myalgias, Denies arthralgias, Denies numbness and Denies tingling Skin/Breast Denies rash, Denies unusual bruising and Denies wounds Neuro Denies abnormal gait, Denies dizziness, Denies headache(s), Denies memory loss, Denies numbness, Denies Sensory deficit (Neuro), Denies tingling and Denies weakness Psych Denies anxiety, Denies depression and Denies memory loss Endo Denies cold intolerance, Denies fatigue, Denies heat intolerance, Denies polydipsia and Denies polyuria Ankit/Lymph Denies easy bleeding and Denies easy bruising Aller/Immun Denies wheezing Physical exam (Primary Care) Tobacco/Smoking Status: Tobacco use Status Tobacco use date assessed 09/06/22 06/19/24 15:14 Patient Tobacco Use Status Never used Tobacco 06/19/24 15:14 e-Cigarette/Vaping Use Never Used 06/19/24 15:14 Depression Screening Interpretation: Negative Thrive Assessment: Date of Thrive Assessment Date Thrive assessed 09/06/22 06/19/24 15:14 Currently or been in a relationship where the following occur: No concerns reported Const Other: General: no acute distress, well developed, alert and awake Nutritional Appearance: well nourished Orientation/consciousness: patient oriented x3 HENMT Head: Yes normocephalic and Yes atraumatic Ears: hearing grossly normal bilaterally and TM's normal bilaterally General nose exam: Normal external nose present and Normal nares present Mouth: Normal oral and palatal mucosa present and moist mucous membranes Teeth and gingiva: dentition normal Throat: Yes oropharynx normal Eyes Pupils: Equal, round and reactive pupils present and Pupil accommodation reflex normal EOM: EOMs intact bilaterally Neck Neck: Yes normal visual inspection, Yes no lymphadenopathy and Yes trachea midline Thyroid: Thyroid normal Carotids: no bruits Lymphatic: no lymphadenopathy noted Chest Chest palpation & inspection: normal inspection of the chest Resp Effort & Inspection: normal respiratory effort Auscultation: clear to auscultation bilaterally Cardio Rate: regular rate Rhythm: regular rhythm Heart sounds: S1 normal heart sound present, S2 normal heart sound present, no gallops, no murmurs and no rubs Bruits: no abdominal aortic bruits and no carotid bruits GI Palpation (GI): No Abdominal aortic bruit present, Soft to palpation, nontender, No hepatosplenomegaly present and No Rebound tenderness present Auscultation: normal bowel sounds General: Yes no CVA tenderness Back/Spine/Pelvis Back: no CVA tenderness Cervical Spine: cervical ROM normal and No Cervical spine tenderness Thoracic/Lumbar Spine: thoraco-lumbar ROM normal, No pain with thoraco-lumbar ROM, No thoracic spinal tenderness and No lumbar spinal tenderness Skin General: warm and dry. Normal skin color. Normal skin turgor Lesions: no lesions Rashes: no rashes Trauma: no lacerations or abrasions Wounds: no wounds Nails: normal Neuro General: patient oriented x3, gait normal and CN's II-XI intact bilaterally Cranial nerves: Yes Equal, round and reactive pupils present Cognition (Neuro): normal cognition Gait exam (Neuro): Normal gait present Motor exam (neuro): 5/5 motor strength present throughout Sensory Exam: No Sensory deficit (Neuro) Deep tendon reflexes (DTR's): Right patellar reflex intensity grade: 2+ and Left patellar reflex intensity grade: 2+ Extrem General: Yes normal to inspection, No edema and No calf tenderness Psych Appearance: grossly normal Affect: normal affect Attitude: cooperative Thought process: Normal thought process present Coding Level of Care Code Est Pt Prev Care 18-39y(18556) Diagnoses Normal physical examination, routine Z00.00 Z34.90 Eye exam, routine Z01.00 Laboratory tests ordered as part of a complete physical exam (CPE) Z00.00 Additional Codes PHILIPPE-7 Assessment Billing - PHILIPPE-7 Assessment Tool: PHILIPPE-7 Assessment 84909 ([id number]) PHQ-9 - 55181 - PHQ-9 Billing: Yes ([id number]) Assessment & Plan Assessment & Plan (1) Normal physical examination, routine: Code(s): Z00.00 - Encounter for general adult medical examination without abnormal findings Category: Medical Plan: No significant functional limitation noted Healthy diet and routine exercise encouraged Adequate hydration encouraged to improve her blood pressure Advised to get lab work done and follow-up for a telehealth visit in 2-3 weeks for labs review Return sooner with symptoms or concerns Verbalized understanding and agreed with the treatment plan (2) : Code(s): Z34.90 - Encounter for supervision of normal , unspecified, unspecified trimester Category: Medical Plan: She is 8 weeks without complication. She has not had care Referred to [facility] industrial education teacher (3) Eye exam, routine: Code(s): Z01.00 - Encounter for examination of eyes and vision without abnormal findings Category: Medical Plan: She has not had an eye exam in several years Referred to Ophthalmology for routine eye exam (4) Laboratory tests ordered as part of a complete physical exam (CPE): Code(s): Z00.00 - Encounter for general adult medical examination without abnormal findings Category: Medical Plan: Fasting labs ordered as part of a complete physical exam. Advised to fast for at least 10 hours before getting labs drawn. May drink water Verbalized understanding and agreed with treatment plan. Orders: Orders Complete Blood Count Auto Diff Today Z00.00 - Encounter for general adult medical examination without abnormal findings Comprehensive [place]. Panel Fast Today Z00.00 - Encounter for general adult medical examination without abnormal findings Lipid Panel Today Z00.00 - Encounter for general adult medical examination without abnormal findings TSH reflex Free T4 Today Z00.00 - Encounter for general adult medical examination without abnormal findings UA CC w/rflx Micro + Cult Today Z00.00 - Encounter for general adult medical examination without abnormal findings Referrals RAPID TRANSIT OPERATOR Referral Z34.90 - Encounter for supervision of normal , unspecified, unspecified trimester
[2024-06-19 15:32] VITALS: BP 98/56; PULSE 88; RESP 16; TEMP 36.8; O2SAT 100; BMI 25.9
== END 2024-06-19 16:02 | disposition home or self-care (01) ==
PROVIDERS: PCP Nurse Practitioner Family; Visit Provider Nurse Practitioner Family
DX: Z00.00 Encounter for general adult medical examination without abnormal findings (principal)

== ENCOUNTER → 2024-06-19 15:01 | Outpatient (BNVA) | payer MEDICAID, SELFPAY | PROVIDERS: PCP Nurse Practitioner Family; Visit Provider Nurse Practitioner Family | DX: Z00.00 Encounter for general adult medical examination without abnormal findings (principal) | CPT/HCPCS: 96127; 99395 ==

== ENCOUNTER 2025-04-15 09:22 | Outpatient (AMB) | payer MEDICAID, SELFPAY ==
--- NOTE | 2025-04-15 09:27 | A.OFFPC_ITS ---
Vital Signs 04/15/25 09:34 04/15/25 10:08 Height 5 ft 1 in Weight 139 lb 2 oz BMI 26.3 BP 99/68 Blood Pressure Location Rt brachial Position Sitting Respiration 12 Pulse 103 H 80 Pulse Source Pulse Oximeter Pulse Oximeter Temp 97.1 F Temp Source Oral Pulse Oximetry (%) 100 Oxygen Delivery Method Room Air Intake Visit Reasons: Back pain Intake Note: Patient c/o back px after giving it got worse Media Developer Required: No Allergies No Known Allergies (No Known Allergies*) Allergy (Verified 04/15/25 09:48) Medication List - Last Reconciled 04/15/25 by Estela Cummins, LABOR RELATIONS TEACHER-BC folic acid 0.8 mg PO DAILY vit-iron fum-folic ac 27 mg iron- 0.8 mg tabs PO DAILY Tobacco use date assessed: 04/15/25 Dental Screening Dental Screen Date: 04/15/25 Did you have a dental visit in the last 12 months?: Yes Did you have a dental problem in the last 6 months where you did not have access to dental care?: No Was dental information given to patient?: Patient has dentist HPI HPI Comments History of Present Illness Details History of Present Illness - The patient is a 25-year-old female pr esenting with back pain management and evaluation of scoliosis. - Chronic back pain since childhood wors ened post-epidural during on January 20. - Anesthesiologist suggested undiagnosed scoliosis. - Pain localized to lower back, exacerba malika in the cold and mornings. - No radiation to hips, legs; walking un affected. - Denies fever, chills. - Posture affected during shoulder lifti ng; right shoulder asymmetrical raising. - No history of back surgery. - Self-care methods and posture braces i neffective. - No consultation with LAST REPAIRER HELPER for back p ain post-delivery. Review of Systems - Musculoskeletal: Reports chronic back pain localized to lower back, worsened in mornings and cold temperatures. Denies radiation to hips or legs. - General: Denies fever or chills. - Genitourinary: Reports normal urinatio n. - Gastrointestinal: Reports normal bowel movements. Physical Exam General: Well developed, well nourished, in no acute distress. Appears stated age. Head: Normocephalic, atraumatic. Eyes: Pupils are equal, round and reactive to light and accommodation. Conjunctivae are clear. Neck: Supple Lungs: Speaking in full sentences . Musculoskeletal: Joints are nontender, without swelling, redness, or effusions. Pulses: Peripheral pulses are equal and palpable bilaterally. Extremities: No clubbing, cyanosis nor edema is noted. Psych: Mood and affect appropriate. Discussion Notes I discussed with the patient the likely diagnosis of scoliosis, confirmed through clinical examination. We reviewed the limitations of intervention for scoliosis in adults, as it is a condition best managed with bracing during growth phases in childhood. Actively worsening back pain management was discussed, involving options such as X-rays to evaluate the degree of curvature, and potential referrals to pain management clinics or physical therapy. The risks, benefits, and potential limited interventions at this age were elaborated upon. We also discussed venues for planned X-rays and scheduling for physical therapy, focusing on clinics convenient to the patient. I advised considering pain management consultations which would incorporate physical therapy as a subsequent measure. Patient was given time to ask questions. All questions were answered to their satisfaction. Assessment and Plan 1. Scoliosis - Clinically confirmed scoliosis; ordere d x-ray to assess curvature. - Non-interventional due to adult status . - Recommend physical therapy. 2. Back pain, chronic exacerbation - Chronic pain and exacerbati on; initiated physical therapy. - Physical therapy referral; monitor imp rovement. - Consider pain management follow-up if unresolved. 3. Est care - current PCP Dr Patito Madrigal wi ll be leaving in Jul. She wishes to est care w/ myself moving [facility]. Asked she schedule her next visit w/ me in 3 mo to fu on back pain and to est care, sooner as needed. Patient Instructions - Schedule an X-ray at [facility] or [facility] as convenient. - Await phone call for physical therapy scheduling. - Follow up with primary care after comp leting physical therapy. - Contact primary care if symptoms worse n. Consent Patient was informed and verbally consented to the use of an ambient scribe for clinic note documentation during this visit. Total time spent caring for the patient today was 30 minutes. This includes time spent before the visit reviewing the chart, time spent during the visit, and time spent after the visit on documentation, reviewing laboratory results, diagnostic imaging, medications, performing a medically necessary evaluation, counseling on diagnoses, care coordination, ordering appropriate tests, ordering appropriate medications, review of tests performed by other providers, reporting test results with the patient, communication with other healthcare providers. [facility] Medical History No pertinent past medical history Surgical History No pertinent past surgical history Family History (Updated 06/19/24 @ 15:30 by Faye Hannon MA) Father No problems noted. Mother No problems noted. Social History Household Members: Family Housing: House Patient Tobacco Use Status: Never used Tobacco e-Cigarette/Vaping Use: Never Used Second Hand Smoke Exposure: No service: No Current occupational status: employed Current occupation: [employer] Cognitive needs: No Hearing needs: No Vision needs: No Female Reproductive History Menstrual Age of Menarche: 12 Questionnaire PHQ-9 Over the last 2 weeks, how often have you been bothered by any of the following problems? 1. Little interest or pleasure in doing things: not at all 2. Feeling down, depressed, or hopeless: not at all 3. Trouble falling or staying asleep, or sleeping too much: not at all 4. Feeling tired or having little energy: several days 5. Poor appetite or overeating: not at all 6. Feeling bad about yourself - or that you are a failure or have let yourself or your family down: not at all 7. Trouble concentrating on things, such as reading the newspaper or watching television: not at all 8. Moving or speaking so slowly that other people could have noticed. Or the opposite - being so fidgety or restless that you have been moving around a lot more than usual: not at all 9. Thoughts that you would be better off or of hurting yourself in some way: not at all Total score: 1 Depression Screening Interpretation: Negative Depression Screening Done: Yes 14105 - PHQ-9 Billing: Yes Source: Developed by Drs. Hugo Kendrick, Kristin Zaldivar, Brendon Marie and colleagues, with an educational adam from [employer]. Thrive Questionnaire Date Thrive assessed: 04/15/25 I am a: Patient What is your living situation today?: I have a steady place to live Within the past 12 months, did the food you bought not last and you didn't have the money to get more?: Never true Within the past 12 months, did you worry whether your food would run out before you got money to buy more?: Never true Do you have trouble paying for medicines?: No Do you have trouble getting transportation to medical appointments?: No Do you have trouble paying your heating and electricity bill?: No Do you have trouble taking care of your child, family member or friend?: No Do you have trouble with day-to-day activities such as bathing, preparing meals, shopping, managing finances, etc.?: No Are you currently unemployed and looking for a job?: No Are you interested in more education?: No Please select the resources that you would like help with: None Currently or been in a relationship where the following occur: No concerns reported THRIVE Score: 0 AUDIT C Alcohol Use Questionnaire (AUDIT-C) 1. How often do you have a drink containing alcohol?: Never 2. How many drinks containing alcohol do you have on a typical day when you are drinking?: 1 or 2 3. How often do you have six or more drinks on one occasion?: Never Total Score: 0 Score Reviewed/Action Taken: Yes PHILIPPE-7 AMB Questionnaire PHILIPPE-7 Date PHILIPPE - 7 assessed: 04/15/25 Feeling nervous, anxious, or on edge: 0 = Not at all Not being able to stop or control worryin = Not at all Worrying too much about different things: 0 = Not at all Trouble relaxin = Not at all Being so restless that it is hard to sit still: 0 = Not at all Becoming easily annoyed or irritable: 0 = Not at all Feeling afraid as if something awful might happen: 0 = Not at all Total PHILIPPE-7 score (0-4 normal; 5-9 mild; 10-14 moderate; 15-21 severe): 0 Source: Developed by Drs. Hugo Kendrick, Kristin Zaldivar, Brendon Marie and colleagues, with an educational adam from [employer]. PHILIPPE-7 Assessment Billing PHILIPPE-7 Assessment Tool: PHILIPPE-7 Assessment 15038 Physical exam (Primary Care) Vital Signs: Last Vital Signs Temp 97.1 F 04/15/25 09:34 Pulse 103 H 04/15/25 09:34 Resp 12 04/15/25 09:34 BP 99/68 04/15/25 09:34 Pulse Ox 100 04/15/25 09:34 Oxygen Delivery Method Room Air 04/15/25 09:34 BMI result Body Mass Index 26.3 Tobacco/Smoking Status: Tobacco use Status Tobacco use date assessed 04/15/25 04/15/25 09:30 Patient Tobacco Use Status Never used Tobacco 04/15/25 09:30 e-Cigarette/Vaping Use Never Used 04/15/25 09:30 PHQ-9: PHQ-9 Score PHQ-9: Total score 1 04/15/25 09:30 Depression Screening Interpretation: Negative Thrive Assessment: Date of Thrive Assessment Date Thrive assessed 04/15/25 04/15/25 09:30 Currently or been in a relationship where the following occur: No concerns reported General: Yes no CVA tenderness Back/Spine/Pelvis Other: SHOULDER ASYMMETRY LEFT LOWER THAN RIGHT Back: no CVA tenderness Cervical Spine: normal cervical lordosis and cervical ROM normal Thoracic/Lumbar Spine: straight leg raise negative bilaterally, paraspinal muscle tenderness (NO), Thoracic/lumbar scoliosis and thoracic spinal tenderness at T8, at T9 and at T10 Pelvis: no pain with anterior-posterior compression and no pain with lateral compression Sacroiliac joints: bilaterally nontender Coding Level of Care Code Est Pt Level 4 (83896) Complex EM visit Add On G2211 Diagnoses Chronic midline low back pain without sciatica M54.50; G89.29 Back pain location: low back pain Back pain laterality: midline Sciatica presence: without sciatica Adolescent idiopathic scoliosis of thoracolumbar region M41.125 Scoliosis type: idiopathic Spinal region: thoracolumbar Idiopathic scoliosis type: adolescent Additional Codes PHILIPPE-7 Assessment Billing - PHILIPPE-7 Assessment Tool: PHILIPPE-7 Assessment 44820 ([id number]) PHQ-9 - 61460 - PHQ-9 Billing: Yes ([id number]) Assessment & Plan Assessment & Plan (1) Chronic back pain: Code(s): M54.9 - Dorsalgia, unspecified; G89.29 - Other chronic pain Category: Medical Qualifiers: Back pain location: low back pain Back pain laterality: midline Sciatica presence: without sciatica Qualified Code(s): M54.50 - Low back pain, unspecified; G89.29 - Other chronic pain (2) Scoliosis: Code(s): M41.9 - Scoliosis, unspecified Category: Medical Qualifiers: Scoliosis type: idiopathic Spinal region: thoracolumbar Idiopathic scoliosis type: adolescent Qualified Code(s): M41.125 - Adolescent idiopathic scoliosis, thoracolumbar region Plan . Orders: Orders PT Evaluation and Treatment Today G89.29 - Other chronic pain, M41.9 - Scoliosis, unspecified, M54.9 - Dorsalgia, unspecified XR lumbar spine 6V w bending Today M41.9 - Scoliosis, unspecified XR thoracic spine 2V Today M41.9 - Scoliosis, unspecified
[2025-04-15 09:34] VITALS: BP 99/68; PULSE 103; RESP 12; TEMP 36.2; O2SAT 100; BMI 26.3
[2025-04-15 10:08] VITALS: PULSE 80
--- OUTSIDE RECORDS SUMMARY | 2025-04-15 11:13 | XMS_ITS | Clinical Summary ---
Author Organization [facility] Address [address] [place] [phone] Phone Care Team Providers Care Gettering Operator Name Role Phone Pcp, Unknown Primary Care Provider Unavailabl e Allergies No known active allergies Medications clotrimazole-be tamethasone (LOTRISONE) cream APPLY TOPICALLY TO THE AFFECTED AREA TWICE DAILY FOR 2 WEEKS 3 Active desog-e.estradi oL/e.estradioL (KARIVA) 0.15-0.02 mgx21 /0.01 mg x 5 per tablet Take 1 tablet by mouth daily. Active hydrocortisone 2.5 % cream 3 Active benzonatate (TESSALON) 100 MG capsule Take 2 capsules (200 mg total) by mouth 3 (three) times a day as needed for cough. 21 capsule 3 Active Active Problems No known active problems Immunizations Immunization Administration Dates Next Due Tdap 09/22/2019 Social History Tobacco Use Types Packs/Day Years Used Date Smoking Tobacco: Never Smokeless Tobacco: Never Education Answer Date Recorded Are you interested in more education? Not on tete e 06/08/2023 Are you concerned about learning? Not on file 06/08/2023 No 06/08/2023 No 06/08/2023 Digital Access Answer Date Recorded No 06/08/2023 No 06/08/2023 Reliable internet access at home? Not on file 06/08/2023 Device with a working camera? Not on file Comments Unknown Sex and Gender Information Value Date Recorded Sex Assigned at Not on file Legal Sex Female 8:45 AM EDT Gender Identity Not on file Sexual Orientation Not on file Last Filed Vital Signs Vital Sign Reading Time Taken Comments Blood Pressure 122/70 06/08/2023 10:19 AM EDT Pulse 73 06/08/2023 10:19 AM EDT Temperature 36.9 C (98.4 F) 06/08/2023 10:19 AM EDT Respiratory Rate 18 06/08/2023 10:19 AM EDT Oxygen Saturation 98% 06/08/2023 10:19 AM EDT Inhaled Oxygen Concentration - - Weight - - Height - - Body Mass Index - - Plan of Treatment Health Maintenance Due Date Last Done Comments DEPRESSION SCREENING 2010 HEPATITIS C SCREENING 01/02/2016 HIV ONE-TIME SCREENING (18-6 5 YEARS) 01/02/2016 PAP SMEAR 2019 INFLUENZA VACCINE (#1) 2025 COVID-19 VACCINE (2 2024-2 6 season) 2025 11/10/2020 Adult Td,Tdap Booster 09/22/2029 09/22/2019 SMOKING STATUS SCREENING (On ce After 26 Yrs) Completed 06/08/2023 HEPATITIS A VACCINES Aged Out No long er eligible based on patient's age to complete this topic HIB VACCINES Aged Out No longer eligi ble based on patient's age to complete this topic MENINGOCOCCAL VACCINES (ACWY) Aged Out No longer eligible based on patient's age to complete this topic MENINGOCOCCAL VACCINES (B) Aged Out N o longer eligible based on patient's age to complete this topic PNEUMOCOCCAL VACCINES (0-49 years) Aged Out No longer eligible based on patient's age to complete this topic Medical Devices Not on file Insurance [address] [place] [id number] [facility] [place] [address] [place] [id number] [facility] Care Teams Gettering Operator Relationship Specialty Start Date End Date Pcp, Unknown PCP - General 06/08/23 Additional Source Comments The information contained in this document represents components of the legal health record. It is not the complete legal health record.[facility]
--- OUTSIDE RECORDS SUMMARY | 2025-04-15 11:13 | XMS_ITS | Clinical Summary ---
Author Organization [facility] Address [address] [place] [address] Care Team Providers Care Time Recorder Name Role Phone Unavailable Primary Care Provider Unavailabl e Allergies No known active allergies Medications Vit-Fe Fumarate-FA ( Vitamins) 28-0.8 MG TabletIndication s:Encounter for test, result positive Take 1 tablet by mouth 1 (one) time each day. 90 tablet 3 05/21/2024 Active Active Problems Problem Noted Date Diagnosed Date Acne vulgaris 04/30/2017 History of anorexia nervosa 04/30/2017 Overview (06/03/2024): Hospitalized 06/2015 in [place] Immunizations Immunization Administration Dates Next Due Tdap 09/22/2019 Family History Medical History Relation Comments Diabetes Other No Known Problems Parent No Known Problems Sibling Relation Status Comments Other Parent Sibling Social History Tobacco Use Types Packs/Day Years Used Date Smoking Tobacco: Never Passive Smoke Exposure: Never Smokeless Tobacco: Never Tobacco Cessation:Counseling Given: Not Answered Alcohol Use Standard Drinks/Week Comments Yes 0 (1 standard drink = 0.6 oz pur e alcohol) socially PP Intimate Partner Violence Answer Ramana e Recorded Physically Abused No 05/21/2024 Reproductive coercion No 05/21/2024 Unsafe living situation No 05/21/20 24 Forced to do things No 05/21/2024 E-Cigarette/Vaping History Answer Date Recorded E-Cigarette Use Former User 09/02/2024 Contains THC? N 09/02/2024 Contains Nicotine N 09/02/2024 Vaping Containing CBD? N Vaping Containing Flavoring? N Vaping - Other Substances? Not on file 09/02 Comments No Sex and Gender Information Value Date Recorded Sex Assigned at Female 05/21/2024 8:30 AM CDT Legal Sex Female 6:24 PM CDT Gender Identity Female 05/15/2022 6:24 PM CDT Sexual Orientation Straight 05/15/2022 6: 24 PM CDT Last Filed Vital Signs Vital Sign Reading Time Taken Comments Blood Pressure 103/67 06/03/2024 12:31 PM EDT Pulse - - Temperature - - Respiratory Rate - - Oxygen Saturation - - Inhaled Oxygen Concentration - - Weight - - Height - - Body Mass Index - - Plan of Treatment Health Maintenance Due Date Last Done Comments HIV Screening 1998 Hepatitis C Screening 1998 Hepatitis B Vaccines (1 of 3 - 19+ 3-dose series) 2017 Pap Smear 2019 DTaP,Tdap,and Td Vaccines (2 - Td or Tdap) 10/20/2019 09/22/2019 Cervical Cancer Screening 2023 HPV/Cotest 2023 HPV Vaccines (1 - 3-dose SCD M series) 2025 Influenza Vaccine (#1) 2025 Hepatitis A Vaccines Aged Out No long er eligible based on patient's age to complete this topic Procedures Procedure Name Priority Date/Time Associated Diagnosis Comments US Routine 06/03/2024 12:28 PM EDT Encounter for test, result positive POCT , URINE (PPLM) Routine 05/21/2024 9:48 AM EDT Encounter for test, result positive since 04/15/[address] [place] [id number] [facility]ICAID-[email or web address]
--- OUTSIDE RECORDS SUMMARY | 2025-04-15 11:13 | XMS_ITS | Encounter Summary ---
Author Organization [facility] Address [address] [place] [address] Care Team Providers Care Maintenance Service Dispatcher Name Role Phone Unavailable Primary Care Provider Unavailabl e Reason for Visit * Reason Onset Date Comments Question: Nurse Line 01/03/2024 Encounter Details Date Type Department Care Team (Late st Contact Info) Description 01/03/2024 Telephone [facility] [address] [id number] Kimberley Moreno NP [address] [place] [id number] Question: Nurse Line Social History Tobacco Use Types Packs/Day Years Used Date Smoking Tobacco: Never Assessed Comments Unknown Sex and Gender Information Value Date Recorded Sex Assigned at Female 05/21/2024 8:30 AM CDT Legal Sex Female 6:24 PM CDT Gender Identity Female 05/15/2022 6:24 PM CDT Sexual Orientation Straight 05/15/2022 6: 24 PM CDT documented as of this encounter Miscellaneous Notes * Telephone Encounter - Greta Roman RN - 01/03/2024 4:48 PM EDT 01/03/24 TC to pt, who reports taking Plan B 4 days after upic, on last day of her period. Not currently using any form of control. Pt now reports some spotting. Advised that some bleeding is normal after taking EC, advised pt to take home UPT 3 weeks after Plan B, c/b if wants an appt. Greta Roman RN * Telephone Encounter - Nancy Ney Pires - 01/03/2024 4:41 PM EDT Pt is needing a call back from provider. Pt took emergency contraception and is having concerns. Ptconfirmed phone number. documented in this encounter Plan of Treatment Not on file documented as of this encounter Visit Diagnoses Not on filedocumented in this encounter
== END 2025-04-15 10:02 | disposition home or self-care (01) ==
LOC: HO.HMCFM 09:26
PROVIDERS: PCP Nurse Practitioner Family; Visit Provider Nurse Practitioner Family
DX: M54.50 Low back pain, unspecified (principal); G89.29 Other chronic pain; M41.125 Adolescent idiopathic scoliosis, thoracolumbar region

== ENCOUNTER 2025-04-15 09:22 | Outpatient (REF) | payer MEDICAID, SELFPAY ==
--- NOTE | ~2025-04-15 | XR_ITS ---
CLINICAL HISTORY: M41.9 - Scoliosis, unspecified Exam: AP, lateral, swimmer's lateral view of the thoracic spine. Comparison: Lumbar spine radiographs from same day. Findings: Minimal convex right midthoracic curvature with convex left lower thoracic curvature. Alignment is anatomic on the lateral views. No acute fracture. Minimal to mild degenerative change throughout the thoracic spine. Impression: Minor spinal curvature with minimal to mild degenerative change. This document has been electronically signed by: Julián Nj MD on 04/16/2025 09:39:37
--- NOTE | ~2025-04-15 | XR_ITS ---
CLINICAL HISTORY: M41.9 - Scoliosis, unspecified Exam: AP, lateral, spot lateral, flexion lateral, extension lateral, and bilateral oblique views of the lumbar spine. Comparison: Thoracic spine radiographs from same day. Findings: AP view demonstrates minimal convex left lower thoracic curvature. Alignment of the lumbar vertebral bodies is anatomic. No acute fracture. No abnormal motion on flexion and extension radiographs. Disc space heights are well preserved Facet joints are unremarkable. Impression: Unremarkable lumbar spine radiographs This document has been electronically signed by: Julián Nj MD on 04/16/2025 09:48:12
== END 2025-04-15 09:23 | disposition home or self-care (01) ==
LOC: HO.XRAY 09:22
PROVIDERS: PCP Nurse Practitioner Family; Visit Provider Nurse Practitioner Family
DX: M41.9 Scoliosis, unspecified (principal); M54.50 Low back pain, unspecified; G89.29 Other chronic pain; M41.125 Adolescent idiopathic scoliosis, thoracolumbar region
CPT/HCPCS: 72070; 72114; 96127; 99212

== ENCOUNTER → 2025-04-15 14:17 | Outpatient (BNV) | payer MEDICAID, SELFPAY | PROVIDERS: PCP Nurse Practitioner Family; Visit Provider Radiology Diagnostic Radiology | DX: M41.86 Other forms of scoliosis, lumbar region (principal); M41.34 Thoracogenic scoliosis, thoracic region | CPT/HCPCS: 72070; 72114 ==

== ENCOUNTER 2025-04-28 15:04 | Outpatient (AMB) | payer MEDICAID, SELFPAY ==
--- NOTE | 2025-04-28 14:57 | MHC.PC.OV ---
Intake Visit Reasons: FMLA Intake Note: Telehealth for fmla Commercial Or Institutional Cleaner Required: No Allergies No Known Allergies (No Known Allergies*) Allergy (Verified 04/28/25 16:04) Tobacco use date assessed: 04/28/25 Dental Screening Dental Screen Date: 04/28/25 Did you have a dental visit in the last 12 months?: Yes Did you have a dental problem in the last 6 months where you did not have access to dental care?: No Was dental information given to patient?: Patient has dentist HPI HPI Comments History of Present Illness Details Telehealth visit today request to complete short term disablity ppw Has been on maternity leave and is due to return to work in [place] I saw her for a visit for back pain. Xrays were completed and she was referred to PT which she will attend 1-2 times per week for 6-8 weeks. This does not qualify her for disability or need to be out of work cont. It does qualify her for Intermittent FMLA to allow her to attend these appts. Unsure about bonding/leave in [place] Plan: Advised pt to speak to her employer and clarify this Disability - which she does not have from my stand point VS Intermittent FMLA with return to work as indicated by her parental leave. Asked that she f/u with me and asked she use this note to review w/ her employer for clarification. She agreed. Telehealth Attestation The service was conducted via telehealth, and all documented information is accurate to the discussion during the telehealth visit. The patient has been explained that this is an interactive (audio/video) telehealth encounter and what that consists of. The patient understands and wishes to proceed. [employer] platform was used. Total time spent caring for the patient today was 21 minutes. This includes time spent before the visit reviewing the chart, time spent during the visit, and time spent after the visit on documentation [facility] Medical History No pertinent past medical history Surgical History No pertinent past surgical history Family History (Updated 06/19/24 @ 15:30 by Faye Hannon MA) Father No problems noted. Mother No problems noted. Social History (Reviewed 12/10/23 @ 10:31 by VLADIMIR Garcia Household Members: Family Housing: House Patient Tobacco Use Status: Never used Tobacco e-Cigarette/Vaping Use: Never Used Second Hand Smoke Exposure: No service: No Current occupational status: employed Current occupation: [employer] Cognitive needs: No Hearing needs: No Vision needs: No Female Reproductive History Menstrual Age of Menarche: 12 Questionnaire Thrive Questionnaire Date Thrive assessed: 04/15/25 PHILIPPE-7 AMB Questionnaire PHILIPPE-7 Date PHILIPPE - 7 assessed: 04/15/25 Source: Developed by Drs. Hugo Kendrick, Kristin Zaldivar, Brendon Marie and colleagues, with an educational adam from [employer]. Physical exam (Primary Care) Tobacco/Smoking Status: Tobacco use Status Tobacco use date assessed 04/28/25 04/28/25 14:59 Patient Tobacco Use Status Never used Tobacco 04/28/25 14:59 e-Cigarette/Vaping Use Never Used 04/28/25 14:59 Thrive Assessment: Date of Thrive Assessment Date Thrive assessed 04/15/25 04/28/25 14:59 Telehealth Telehealth Telehealth Platform: [facility] Location of provider rendering services: practice address Location of patient: address on file Patient Identification confirmed using: Name, : Yes Telehealth method: voice only Patient verbally consented to treatment: Yes Patient verbally consented to billing insurance company: Yes Patient informed of any privacy concerns related to visit: Yes Minutes spent on Phone/Video with Pt.: 11 Coding Level of Care Code Tele Est Pt Level 3 (78028) Complex EM visit Add On G2211 Diagnoses Encounters for administrative purpose Z02.9 Chronic midline low back pain without sciatica M54.50; G89.29 Back pain location: low back pain Back pain laterality: midline Sciatica presence: without sciatica Adolescent idiopathic scoliosis of thoracolumbar region M41.125 Scoliosis type: idiopathic Idiopathic scoliosis type: adolescent Spinal region: thoracolumbar Assessment & Plan Assessment & Plan (1) Encounters for administrative purpose: Code(s): Z02.9 - Encounter for administrative examinations, unspecified Category: Medical (2) Chronic back pain: Code(s): M54.9 - Dorsalgia, unspecified; G89.29 - Other chronic pain Category: Medical Qualifiers: Back pain location: low back pain Back pain laterality: midline Sciatica presence: without sciatica Qualified Code(s): M54.50 - Low back pain, unspecified; G89.29 - Other chronic pain (3) Scoliosis: Code(s): M41.9 - Scoliosis, unspecified Category: Medical Qualifiers: Scoliosis type: idiopathic Idiopathic scoliosis type: adolescent Spinal region: thoracolumbar Qualified Code(s): M41.125 - Adolescent idiopathic scoliosis, thoracolumbar region Plan ,
--- OUTSIDE RECORDS SUMMARY | 2025-04-28 18:03 | XMS_ITS | Encounter Summary ---
Author Organization [facility] Address [address] [place] [address] Care Team Providers Care Chemical Process Engineer Name Role Phone Unavailable Primary Care Provider Unavailabl e Reason for Visit * Reason Onset Date Comments Question: Nurse Line 01/03/2024 Encounter Details Date Type Department Care Team (Late st Contact Info) Description 01/03/2024 Telephone [facility] [address] [id number] Kimberley Moreno NP [address] [place] [id number] Social History Tobacco Use Types Packs/Day Years [...] Roman RN * Telephone Encounter - Nancy Humphreys 01/03/2024 4:41 PM EDT Pt is needing a call back from provider. Pt took emergency contraception and is having concerns. Ptconfirmed phone number. documented in this encounter Plan of Treatment Not on file documented as of this encounter Visit Diagnoses Not on filedocumented in this encounter
--- OUTSIDE RECORDS SUMMARY | 2025-04-28 18:03 | XMS_ITS | Clinical Summary ---
Author Organization [facility] Address [address] [place] [address] Care Team Providers Care Frame Cleaner Name Role Phone Unavailable Primary Care Provider [...] No 05/21/2024 Unsafe living situation No 05/21/20 Forced to do things No 05/21/2024 E-Cigarette/Vaping [...] EDT Encounter for test, result positive since 04/28/[address] [place] [id number] [facility]ICAID[facility]
--- OUTSIDE RECORDS SUMMARY | 2025-04-28 18:03 | XMS_ITS | Clinical Summary ---
Author Organization [facility] Address [address] [facility] [address] [place] [id number] Phone Care Team Providers Care Architectural Administrative Assistant Name Role Phone Pcp, Unknown Primary Care [...] Medical Devices Not on file Insurance [address] [place] [phone] [facility] [place] [address] [place] [phone] [facility] Care Teams Architectural Administrative Assistant Relationship Specialty Start Date End Date Pcp, Unknown PCP - General 06/08/23 Additional Source Comments The information contained in this document represents components of the legal health record. It is not the complete legal health record.[facility]
== END 2025-04-28 16:18 | disposition home or self-care (01) ==
LOC: HO.HMCFM 15:04
PROVIDERS: PCP Nurse Practitioner Family; Visit Provider Nurse Practitioner Family
DX: M54.50 Low back pain, unspecified (principal); G89.29 Other chronic pain; M41.125 Adolescent idiopathic scoliosis, thoracolumbar region